=== PATIENT | male | born 1955 | race Caucasian/White ===

== ENCOUNTER 2020-02-23 10:28 | Day surgery (SDC) | payer MEDICARE, BC ==
[~2020-02-23 10:28] MED LIST: Lactated Ringers 1,000 ML IV SCH
--- NOTE | 2020-02-23 11:07 | PCM.PREANE ---
Preanesthetic Assessment - Anesthesia/Transfusion/Family Hx Anesthesia History: Prior Anesthesia Without Reaction Family History of Anesthesia Reaction: No Transfusion History: No Prior Transfusion(s) Intubation History: Unknown - Review of Systems General: No Symptoms Pulmonary: No Symptoms Cardiovascular: No Symptoms Gastrointestinal: Constipation, Diarrhea, Difficulty Swallowing Neurological: No Symptoms Other: Reports: None - Physical Assessment Height: 5 ft 11.5 in Weight: 96.615 kg ASA Class: 2 Mental Status: Alert & Oriented x3 Airway Class: Mallampati = 2 Dentition: Reports: Normal Dentition, [place](s) (x1 right upper (back)), Implants (x1 lower left and right) Thyro-Mental Finger Breadths: 3 Mouth Opening Finger Breadths: 3 ROM/Head Extension: Full Lungs: Clear to Auscultation, Normal Respiratory Effort Cardiovascular: Regular Rate, Regular Rhythm - Allergies Allergies/Adverse Reactions: Allergies Allergy/AdvReac Type Severity Reaction Status Date / Time No Known Allergies Allergy Verified 02/23/20 10:56 - Blood Blood Available: No - Anesthesia Plan Pre-Op Medication Ordered: None - Acknowledgements Anesthesia Type Planned: MAC Pt an Appropriate Candidate for the Planned Anesthesia: Yes Alternatives and Risks of Anesthesia Discussed w Pt/Guardian: Yes Pt/Guardian Understands and Agrees with Anesthesia Plan: Yes PreAnesthesia Questionnaire HEENT History: Reports: Other (See Below) Other HEENT History: wears glasses Cardiovascular History: Reports: CAD, High Cholesterol Other Cardiovascular History: hx of elevated LVEDP per chart Gastrointestinal History: Reports: Diverticulosis, Other (See Below) Other Gastrointestinal History: occasional heartburn, current dysphagia Genitourinary History: Reports: BPH (S/P laser TURP) Musculoskeletal History: Reports: Fracture, Gout Other Musculoskeletal History: hx of fx ribs Neurological History: Reports: Concussion, Head Trauma, Other (See Below) Other Neuro History: hx of head injury- had crainiotomy for window to relieve hematoma, had amnesia for 5 days and occasional memory loss since - Past Surgical History Head Surgeries/Procedures: Reports: None HEENT Surgical History: Reports: Tonsillectomy Other HEENT Surgeries/Procedures: has 2 lower dental implants GI Surgical History: Reports: Appendectomy, Colonoscopy ('10) Male Surgical History: Reports: TURP-Transurethral Resection of Prostate Musculoskeletal Surgical History: Reports: Arthroscopic Knee - SUBSTANCE USE Smoking Status *Q: Never Smoker Recreational Drug Use History: No - HOME MEDS Home Medications: Home Meds Aspirin [Adult Low Dose Aspirin EC] 81 mg PO DAILY 10/27/19 [History] Fish Oil/DHA/EPA [Fish Oil 1,200 MG] 1,200 mg PO DAILY 10/27/19 [History] Furosemide 20 mg PO QAM 10/27/19 [History] Isosorbide Mononitrate 20 mg PO BEDTIME 10/27/19 [History] Losartan Potassium 100 mg PO QAM 10/27/19 [History] Magnesium 250 mg PO DAILY 10/27/19 [History] Metoprolol Succinate 50 mg PO QAM 10/27/19 [History] Potassium Chloride [Klor-Con M20] 20 meq PO DAILY 10/27/19 [History] Rosuvastatin Calcium 20 mg PO BEDTIME 10/27/19 [History] amLODIPine Besylate [Norvasc] 10 mg PO BEDTIME 10/27/19 [History] hydroCHLOROthiazide [Hydrochlorothiazide] 25 mg PO QAM 10/27/19 [History] - CURRENT (IN HOUSE) MEDS Current Meds: Current Medications Lactated Ringer's (Ringers, Lactated) 1,000 mls @ 125 mls/hr IV ASDIRECTED [facility] Last Admin: 02/23/20 10:59 Dose: 125 mls/hr Documented by:
[2020-02-23] MEDS ORDERED: Propofol 200 MG/20 ML SDV ONE ×2 (13:25)
[2020-02-23] MEDS ORDERED: Lidocaine 2% 5 ML SDV ONE (13:28)
--- NOTE | 2020-02-23 14:27 | PCM.OPNOTE ---
- General Post-Op/Procedure Note Date of Surgery/Procedure: 02/23/20 Operative Procedure(s): Esophagogastroduodenoscopy with gastric biopsies. Colonoscopy. Pre Op Diagnosis: Dysphagia. Desire for colorectal cancer screening. Post-Op Diagnosis: Mild chronic gastritis. Hiatal hernia. Pancolonic diverticulosis. Anesthesia Technique: MAC (ASA II) Primary Surgeon: Baltazar Valero Vault Person: Sherry Pulido Condition: Good Free Text/Narrative:: DICTATION 300589/2 to 10/14/02 CPT CODE 51512/46028
[2020-02-23] MEDS ORDERED: Lactated Ringers 1,000 ML IV SCH (14:30)
--- NOTE | 2020-02-23 14:35 | PCM.POSTAN ---
POST ANESTHESIA ASSESSMENT - MENTAL STATUS Mental Status: Alert, Oriented - VITAL SIGNS Vital Signs: Last Vital Signs Temp 36.4 C 02/23/20 14:22 Pulse 56 L 02/23/20 14:27 Resp 12 02/23/20 14:27 BP 106/59 L 02/23/20 14:27 Pulse Ox 96 02/23/20 14:27 - RESPIRATORY Respiratory Status: Respiratory Rate WNL, Airway Patent, O2 Saturation Stable - CARDIOVASCULAR CV Status: Pulse Rate WNL, Blood Pressure Stable - GASTROINTESTINAL GI Status: No Symptoms - PAIN Pain Score: 0 - POST OP HYDRATION Hydration Status: Adequate & Stable - OBSERVATIONS Free Text/Narrative:: No anesthesia problems
--- NOTE | 2020-02-23 15:06 | PCM48HPAN ---
Post Anesthesia Note - EVALUATION WITHIN 48HRS OF ANESTHETIC Vital Signs in Normal Range: Yes Patient Participated in Evaluation: Yes Respiratory Function Stable: Yes Airway Patent: Yes Cardiovascular Function Stable: Yes Hydration Status Stable: Yes Pain Control Satisfactory: Yes Nausea and Vomiting Control Satisfactory: Yes Mental Status Recovered: Yes Vital Signs: Last Vital Signs Temp 36.3 C 02/23/20 14:40 Pulse 51 L 02/23/20 14:40 Resp 14 02/23/20 14:40 BP 118/74 02/23/20 14:40 Pulse Ox 95 02/23/20 14:40 - COMMENTS/OBSERVATIONS Free Text/Narrative:: No anesthesia problems
--- NOTE | 2020-02-23 16:43 | OR ---
SURGEON: Baltazar Valero M.D. DATE OF PROCEDURE: 02/23/2020 OPERATION PERFORMED: Colonoscopy. PRIMARY SURGEON: Baltazar Valero MD ANESTHESIA: MAC. ASA CLASSIFICATION: II. [employer]: BLAISE Bautista student. PREOPERATIVE DIAGNOSIS: Desire for colorectal cancer screening. POSTOPERATIVE DIAGNOSIS: Pancolonic diverticulosis. DESCRIPTION OF PROCEDURE: With the patient having completed upper GI endoscopy, he was maintained in the left lateral decubitus position. The colonoscope was inserted into the rectum and advanced with moderate difficulty to the cecum. The colonoscope was retroflexed to visualize the ascending colon from below, then straightened and slowly withdrawn. The cecum, ascending colon, hepatic flexure, transverse colon, splenic flexure, descending colon, sigmoid colon, and rectum were very well visualized. No tumors or polyps were seen. The patient did have pancolonic diverticulosis. No acute inflammatory changes were noted. No stricture or spasm was noted. Once the colonoscope was withdrawn to the rectum, it was retroflexed to visualize the anal orifice from above. Again, no tumors or polyps were seen and there were no acute hemorrhoidal changes. The colonoscope was then straightened, the rectum aspirated, and the colonoscope removed. The patient tolerated the procedure well and was now taken to recovery room in stable condition. SHAUNA / SACHIN /[id number]
--- NOTE | 2020-02-23 17:33 | OR ---
SURGEON: Baltazar Valero M.D. DATE OF PROCEDURE: 02/23/2020 OPERATION PERFORMED: Esophagogastroduodenoscopy with biopsy. PRIMARY SURGEON: Baltazar Valero MD FASHION INTERN: [employer]ilermaker: BLAISE Bautista student. ANESTHESIA: MAC. ASA CLASSIFICATION: II. PREOPERATIVE DIAGNOSIS: Dysphagia. POSTOPERATIVE DIAGNOSIS: Mild chronic gastritis with hiatal hernia. DESCRIPTION OF PROCEDURE: The patient was taken to the endoscopy room and positioned on the endoscopy table in the left lateral decubitus position. Time-out was called for appropriate identification of the patient and procedure. Monitored anesthesia care was provided. The bite block was placed between the patient's teeth. The gastroscope was inserted through the bite block into the oropharynx and advanced without difficulty through the esophagus and stomach into the duodenum where examination was carried out in a retrograde fashion. The duodenum showed no acute inflammatory changes or ulcerations. The stomach did show mild to moderate chronic gastritis. Antral biopsies were obtained to look for the presence of Helicobacter pylori. The gastroscope was then retroflexed to visualize the proximal stomach. No lesions were identified proximally. After antral biopsies had been obtained, the gastroscope was slowly withdrawn, carefully visualizing the greater and lesser curvatures. No acute lesions or ulcerations were noted. The patient did have a moderate-sized hiatal hernia. I did not see any acute reflux nor any significant esophagitis. The esophagus itself demonstrated good contractility. No mid or proximal lesions were identified. As the scope was withdrawn, the vocal cords were briefly visualized. They were noted to move symmetrically and showed no vocal cord lesions. The gastroscope was then removed with the patient having tolerated this portion of the procedure well. Following colonoscopy, he was taken to recovery room in stable condition. SHAUNA / SACHIN /[id number]
== END 2020-02-23 15:13 | disposition home or self-care (01) ==
LOC: MW.SDS 10:28
PROVIDERS: ATTEND Surgery
DX: Z12.11 Encounter for screening for malignant neoplasm of colon (principal); K57.30 Diverticulosis of large intestine without perforation or abscess without bleeding; K29.50 Unspecified chronic gastritis without bleeding; K44.9 Diaphragmatic hernia without obstruction or gangrene; I10 Essential (primary) hypertension; I25.10 Atherosclerotic heart disease of native coronary artery without angina pectoris; Z79.82 Long term (current) use of aspirin; Z79.899 Other long term (current) drug therapy; Z80.0 Family history of malignant neoplasm of digestive organs
CPT/HCPCS: 43239; G0121; J2001; J2704; J7120; 00813; 88305; 88312

== ENCOUNTER 2025-01-30 07:24 | Day surgery (SDC) | payer MEDICARE, BC ==
[2025-01-30] MEDS: Lactated Ringers 1,000 ML IV SCH (07:50)
[2025-01-30] MEDS ORDERED: propofoL 500 MG/50 ML 50 ML ONE (08:44)
[2025-01-30] MEDS ORDERED: Lactated Ringers 1,000 ML IV SCH (09:15)
== END 2025-01-30 10:15 | disposition home or self-care (01) ==
LOC: MW.SDS 07:24
PROVIDERS: ATTEND Surgery
DX: K29.50 Unspecified chronic gastritis without bleeding (principal); K31.7 Polyp of stomach and duodenum; K29.00 Acute gastritis without bleeding; K22.10 Ulcer of esophagus without bleeding; K44.9 Diaphragmatic hernia without obstruction or gangrene; I25.10 Atherosclerotic heart disease of native coronary artery without angina pectoris; I10 Essential (primary) hypertension; E03.9 Hypothyroidism, unspecified; E66.9 Obesity, unspecified; E11.9 Type 2 diabetes mellitus without complications; Z68.30 Body mass index [BMI] 30.0-30.9, adult; Z79.82 Long term (current) use of aspirin; Z79.899 Other long term (current) drug therapy
CPT/HCPCS: 00731; 43239; 88305; J2704; J7120